=== PATIENT | female | born 1935 | race Caucasian/White ===

== ENCOUNTER 2022-07-19 19:58 | Emergency (ER) | payer OTHER ==
[~2022-07-19] VITALS: Ht 157.5 cm; Wt 61.7 kg
[2022-07-19 20:02] VITALS: BP_SYST 175
[2022-07-19 20:28] LABS: HEMOGLOBIN 16.6 g/dL (12.0-16.0)
[2022-07-19] MEDS ORDERED: levETIRAcetam 1,000 MG IV BAG 100 ML IV ONE (20:30)
[2022-07-19] MEDS ORDERED: ONDANSETRON HCL 4 MG/2 ML VIAL IVP ONE (20:30)
[2022-07-19] MEDS ORDERED: MANNITOL 25% 12.5GM/50 ML VIAL IVP ONE ×4 (20:30→22:15)
[2022-07-19 20:36] LABS: HEMATOCRIT 49.8 % (36-48); MEAN CORPUSCULAR HEMOGLOBIN 32 pg (27-31); MEAN CORPUSCULAR HGB CONC 33 % (32-36); MEAN CORPUSCULAR VOLUME 96 fL (79.0-98.0); PLATELET COUNT (AUTO) 225 K/uL (130-430); RED BLOOD CELL COUNT(AUTO) 5.17 MIL/uL (4.2-6.2); RED CELL DISTRIBUTION WIDTH 15.7 % (9.0-15.0)
[2022-07-19 20:38] LABS: WHITE BLOOD COUNT (AUTO) 20.8 K/uL (4.8-10.8)
[2022-07-19] MEDS ORDERED: MANNITOL 25%(12.5gm),50ML VIAL 50 ML ONE ×2 (20:47→23:05)
[2022-07-19] MEDS ORDERED: ONDANSETRON HCL 4 MG/2 ML VIAL ONE (20:48)
[2022-07-19 20:50] LABS: ATYPICAL LYMPHOCYTES % 2 % (0-0); BAND % (MANUAL) 2 % (0-6); LYMPHOCYTES % (MANUAL) 3 % (20-46)
[2022-07-19 20:52] LABS: ANION GAP 11 (5-15); CALCIUM 10.1 mg/dL (8.4-11.0); CHLORIDE 101 mmol/L (98-107); CREATININE 1.92 mg/dL (0.55-1.30); GLUCOSE 137 mg/dL (70-99); UREA NITROGEN, BLOOD 56 mg/dL (8-21)
[2022-07-19 21:00] LABS: INR 1.4 (0.8-1.2); PROTHROMBIN TIME 14.2 SECS (9.5-12.5)
[2022-07-19] MEDS ORDERED: PROPOFOL DRIP 100 ML IV ONE (21:00)
[2022-07-19 21:10] LABS: ALANINE AMINOTRANSFERASE 46 U/L (12-78); ALBUMIN 3.7 g/dL (3.4-4.8); ASPARTATE AMINOTRANSFERASE 134 U/L (10-37); CHOLESTEROL 275 mg/dL (<200); TOTAL BILIRUBIN 0.8 mg/dL (0.0-1.0)
[2022-07-19] MEDS ORDERED: DESMOPRESSIN ACETATE 4 MCG/ML AMP IV ONE (21:15)
[2022-07-19 21:59] LABS: CKMB RELATIVE INDEX 1.5 (0.0-2.9); CREATINE KINASE MB 66.2 ng/mL (0-3.6)
[2022-07-19] MEDS: MANNITOL 25% 12.5GM/50 ML VIAL IVP ONE ×2 (22:15→22:56)
[2022-07-19] MEDS ORDERED: niCARdipine 25 MG in D5W 240 ML IV PRN (22:30)
[2022-07-19] MEDS ORDERED: NOREPINEPHRINE BITARTRATE 4 MG in NS 246 ML IV ONE (23:15)
[2022-07-19] MEDS ORDERED: NACL 0.9% 1,000 ML IV ONE (23:15)
[2022-07-20 00:18] VITALS: BP_SYST 142
[2022-07-20 01:32] LABS: BILIRUBIN,URINE NEGATIVE (NEGATIVE); BLOOD, URINE 3+ (NEGATIVE); CLARITY/URINE SL CLOUDY (CLEAR); COLOR,URINE YELLOW (YELLOW); GLUCOSE,URINE NEGATIVE (NEGATIVE); KETONES,URINE NEGATIVE (NEGATIVE); LEUKOCYTE ESTERASE ,URINE NEGATIVE (NEGATIVE); NITRITE, URINE NEGATIVE (NEGATIVE); PH,URINE 5.5 (5.0-8.0); PROTEIN URINE TRACE (NEGATIVE); UROBILINOGEN,URINE 0.2 (0.2-1.0)
[2022-07-20 01:48] LABS: BACTERIA,URINE MANY /HPF (None Seen)
[2022-07-20] MEDS ORDERED: PROPOFOL DRIP 100 ML IV ONE (01:52)
[2022-07-20 01:56] LABS: WBC,URINE 20-50 /HPF (0-3)
== END 2022-07-20 03:45 | disposition short-term general hospital (02) ==
LOC: SED 19:58 → EDBD 19:58 → SED 07-20 03:45
DX: I61.9 Nontraumatic intracerebral hemorrhage, unspecified (principal); R41.82 Altered mental status, unspecified; M62.82 Rhabdomyolysis; R77.8 Other specified abnormalities of plasma proteins; I10 Essential (primary) hypertension; Z88.0 Allergy status to penicillin; Z79.899 Other long term (current) drug therapy
CPT/HCPCS: 99291; 31500; 96365; 70450; 71045; 96375; 96367; 96361; 82465; 85027; 80053; 81000; 82550; 82553; 85007; 85610; 85730; 86886; 86900; 86901; 87070; 87086; 87205; 84484; 36415; 93005; 76376; 94640; 36600; 82803; 96376; 99292; J2597; J1953; J2150; J2405; J2704 ×2; J7030; 94002; 99285